=== PATIENT | female | born 1955 | race Caucasian/White ===

== ENCOUNTER 2017-06-15 05:59 | Day surgery (SDC) | payer MEDICARE, BC ==
[2017-06-14 15:37] VITALS: BMI 25.0
[~2017-06-15 05:59] MED LIST: Cyclopentolate 1% Opth Drop 2 ML BOT FS SCH; Fluorouracil 100 MG, Enoxaparin Sodium 25 MG, EPINEPHrine 0.3 MG in Ophthalmic Irrigati... IVPB SCH; Phenylephrine 2.5% Ophth Soln 5 ML BOT FS SCH
[2017-06-15] MEDS ORDERED: Hydrocortisone Sod Succ/PF 100 mg/2 ml Vial IVP SCH (07:30)
[2017-06-15] MEDS ORDERED: Cyclopentolate 1% Opth Drop 2 ML BOT ONE (07:42)
[2017-06-15] MEDS ORDERED: Phenylephrine 2.5% Ophth Soln 5 ML BOT ONE (07:42)
[2017-06-15] MEDS ORDERED: Fentanyl 100 MCG/2 ML VIAL ONE (08:06)
[2017-06-15] MEDS ORDERED: PROPOFOL 20 ML ONE (08:06)
[2017-06-15] MEDS ORDERED: Midazolam HCl 2 mg/2 ml Vial ONE (08:06)
[2017-06-15] MEDS ORDERED: Lidocaine 2% 10 ML INJ ONE (08:06)
--- NOTE | 2017-06-15 10:38 | OP ---
DATE OF PROCEDURE: 06/15/2017 PREOPERATIVE DIAGNOSIS: Macular hole, right eye. POSTOPERATIVE DIAGNOSIS: Macular hole, right eye. PROCEDURE PERFORMED: Pars plana vitrectomy, internal limiting membrane peel, right eye. SURGEON: Dr. Primitivo Edward. ANESTHESIA: Local with monitored anesthesia care. COMPLICATIONS: None. PROCEDURE IN DETAIL: The patient was identified in the preoperative holding area. [facility]ate [facility] consent for the planned surgical procedure on the right eye had been obtained. The patient was t ransported to the operative suite. Appropriate cardiopulmonary monitoring was established. Local an esthesia was obtained using retrobulbar and modified Van Lint lid block using 50/50 mixture of 4% lid ocaine and 0.75% bupivacaine. The patient was prepped and draped in the usual sterile manner for oph thalmic surgery on the right eye. Lid speculum was placed in the right eye. The 25-gauge trocar was placed in conjunctiva and sclera supratemporally, inferotemporally, and supranasally. Infusion line was placed inferotemporally. Light pipe and vitreous cutter were inserted into the eye. Core vitre ctomy was performed. Posterior hyaloid face was elevated using vacuum suction and peeled into the pe riphery using end-gripping forceps. Indocyanine green dye was infused on the posterior pole x1, iden tifying the internal limiting membrane. This was elevated using membrane scraper and peeled across t he macula in 1 piece using end-gripping forceps. Complete air fluid exchange was performed with 10 m inutes being allowed for fluid to drain posteriorly. A 28% sulfur hexafluoride gas was infused into the eye. Trocars were removed. Eye was noted to retain pressure well. Retrobulbar Kenalog and subc onjunctival Ancef were placed. Atropine and antibiotic ointment placed, and the eye was patched and shielded. The patient was taken to the postoperative recovery unit in good condition having suffered no immediate perioperative complications. DISCHARGE INSTRUCTIONS: The patient was instructed to keep patch and shield on, avoid lifting or rafaela ding, and follow up in the morning with Dr. Edward.
[2017-06-15] MEDS ORDERED: PROPOFOL 200 MG/20 ML VIAL ONE (12:55)
[2017-06-15] MEDS ORDERED: Lidocaine 1% PF 5 ML VIAL ONE (12:55)
== END 2017-06-15 09:35 | disposition home or self-care (01) ==
LOC: SDC 05:59
PROVIDERS: ATTEND Ophthalmology Retina Specialist
PROC: 08T43ZZ Resection of Right Vitreous, Percutaneous Approach (ICD-10-PCS; principal; 2017-06-15)
PROC: 08NE3ZZ Release Right Retina, Percutaneous Approach (ICD-10-PCS; 2017-06-15)
DX: H35.341 Macular cyst, hole, or pseudohole, right eye (principal); D86.0 Sarcoidosis of lung; M79.7 Fibromyalgia; Z88.0 Allergy status to penicillin; Z88.2 Allergy status to sulfonamides; Z79.52 Long term (current) use of systemic steroids; Z79.899 Other long term (current) drug therapy
CPT/HCPCS: 36416; 67025; J0171; J1650; J1720; J2001; J2250; J2704; J3010; J9190